=== PATIENT | female | born 1975 | race Hispanic/Latino ===

== ENCOUNTER 2017-07-05 00:47 | Observation (INO) | payer SELFPAY ==
--- NOTE | 2017-07-05 01:45 | ED PDOC ---
Arrival/HPI - General Chief Complaint: Medical Clearance Time Seen by Provider: 07/05/17 01:18 Historian: Patient, Partner EM Caveat: Uncooperative - History of Present Illness Narrative History of Present Illness (Text): 07/05/17 01:47 41 year old female, whose past medical history includes alcohol abuse and substance abuse, presents to the emergency department complaining of chest pain associated with shortness of breath after binge drinking and use of cocaine as well as K2 earlier today. Patient started swearing and stating she does not want to be examined. Patient's partner states shes been nauseous and vomiting. Patient refused to be examined and denies wanting any blood work or test done. Time/Duration: 4-6 hours Symptom Onset: Gradual Symptom Course: Unchanged Activities at Onset: Light Context: Home Past Medical History - Provider Review Nursing Documentation Reviewed: Yes - Psychiatric Hx Depression: Yes Hx Substance Use: Yes (k2/crack) - Surgical History Hx Orthopedic Surgery: Yes (left hand) Family/Social History - Physician Review Nursing Documentation Reviewed: Yes Family/Social History: No Known Family HX Smoking Status: Heavy Smoker > 10 Cigarettes Daily Hx Alcohol Use: Yes Hx Substance Use: Yes (k2/crack) Allergies/Home Meds Allergies/Adverse Reactions: Allergies No Known Allergies Allergy (Verified 07/05/17 01:27) Home Medications: Home Meds Medication Instructions Recorded Confirmed No Known Home Med 07/05/17 07/05/17 Review of Systems - Physician Review All systems were reviewed & negative as marked: Yes - Review of Systems Systems not reviewed;Unavailable: Uncooperative Respiratory: SOB Cardiovascular: Chest Pain Gastrointestinal: Nausea, Vomiting Physical Exam - Physical Exam Physical Exam Limitations: Uncooperative Vital Signs Reviewed: Yes Vital Signs Temp Pulse Resp BP Pulse Ox 07/05/17 06:53 84 16 103/72 96 07/05/17 04:10 96 H 18 104/62 99 07/05/17 02:22 84 20 119/81 97 07/05/17 01:42 20 07/05/17 01:28 98.3 F 88 96 H 133/84 Temperature: Afebrile Blood Pressure: Normal Pulse: Regular Respiratory Rate: Normal Appearance: Positive for: Well-Appearing, Non-Toxic Pain Distress: None Mental Status: Positive for: Alert and Oriented X 3 - Systems Exam Head: Present: Atraumatic, Normocephalic Pupils: Present: PERRL Extroacular Muscles: Present: EOMI Conjunctiva: Present: Normal Mouth: Present: Moist Mucous Membranes Respiratory/Chest: Present: Clear to Auscultation, Good Air Exchange. No: Respiratory Distress, Accessory Muscle Use Cardiovascular: Present: Regular Rate and Rhythm, Normal S1, S2. No: Murmurs Upper Extremity: Present: Normal Inspection, Normal ROM Lower Extremity: Present: Normal Inspection Neurological: Present: GCS=15, CN II-XII Intact, Speech Normal, Motor Func Grossly Intact, Normal Sensory Function Skin: Present: Warm, Dry, Normal Color. No: Rashes Psychiatric: Present: Alert, Oriented x 3, Intoxicated Medical Decision Making ED Course and Treatment: 07/05/17 01:47 Impression: 41 year old female presents complaining of chest pain associated with shortness of breath after binge drinking and use of cocaine and K2. Patient is being uncooperative and refuses examination. Plan: -- EKG -- Labs -- Chest X-ray -- Reassess and disposition Progress Notes: Patient is swearing and facing away from me. Patient refuses to be examined and is refusing any blood work or tests done. 07/05/17 01:59 Patient is currently cursing and yelling excessively. 07/05/17 02:14 EKG shows NSR at 84 BPM with normal intervals. Normal EKG. Interpreted by me. 07/05/17 06:50 Pt. now cooperative.Blood sent for analysis.Endorsed to oncoming ER attending /reassessment/final disposition - Lab Interpretations Lab Results: 07/05/17 06:50 Lab Results 07/05/17 06:50: WBC 5.7, RBC 3.85, Hgb 12.1, Hct 36.2, MCV 94.0, MCH 31.4, MCHC 33.4, RDW 14.9 H, Plt Count 276, MPV 9.1 - RAD Interpretation Radiology Orders: 07/05/17 01:44 CHEST PORTABLE [RAD] Stat - Scribe Statement The provider has reviewed the documentation as recorded by the Scribe Noemi Leon Provider Scribe Attestation: All medical record entries made by the Scribe were at my direction and personally dictated by me. I have reviewed the chart and agree that the record accurately reflects my personal performance of the history, physical exam, medical decision making, and the department course for this patient. I have also personally directed, reviewed, and agree with the discharge instructions and disposition. Disposition/Present on Arrival - Present on Arrival Any Indicators Present on Arrival: No History of DVT/PE: No History of Uncontrolled Diabetes: No Urinary Catheter: No History of Decub. Ulcer: No History Surgical Site Infection Following: None - Disposition Have Diagnosis and Disposition been Completed?: No Diagnosis: Chest pain, Cocaine abuse Disposition Time: 07:01 Patient Problems: Current Active Problems Problem Status Onset Chest pain Acute Cocaine abuse Acute Condition: STABLE Discharge Instructions (ExitCare): Chest Pain (ED) Forms: [employer] (Irish)
[2017-07-05 07:09] LABS: HEMATOCRIT 36.2 % (36.0-48.0); MEAN CORPUSCULAR HEMOGLOBIN 31.4 pg (25.0-35.0); MEAN CORPUSCULAR HGB CONC 33.4 g/dl (31.0-37.0); MEAN PLATELET VOLUME 9.1 fl (7.0-11.0); RED CELL DISTRIBUTION WIDTH 14.9 % (11.5-14.5); WHITE BLOOD COUNT 5.7 10^3/ul (4.5-11.0)
[2017-07-05 07:23] LABS: INR 0.98 (0.93-1.08); PARTIAL THROMBOPLASTIN TIME 23.8 Seconds (25.1-36.5)
--- NOTE | 2017-07-05 07:29 | ED PDOC ---
Physical Exam Vital Signs Reviewed: Yes Vital Signs Temp Pulse Resp BP Pulse Ox 07/05/17 06:53 84 16 103/72 96 07/05/17 04:10 96 H 18 104/62 99 07/05/17 02:22 84 20 119/81 97 07/05/17 01:42 20 07/05/17 01:28 98.3 F 88 96 H 133/84 Temperature: Afebrile Blood Pressure: Normal Pulse: Regular Respiratory Rate: Tachypneic Appearance: Positive for: Well-Appearing, Non-Toxic, Comfortable Pain Distress: None Mental Status: Positive for: Alert and Oriented X 3 Medical Decision Making ED Course and Treatment: 07/05/17 07:27: Patient endorsed to me by Dr. Santa. Follow up with labs. Pending Chest X-Ray. Will re-evaluate and disposition. 07/05/17 8:58. Labs reviewed. CXR negative. Troponin negative. Patient states she gets intermittent chest pain described as pressure/squeezing on her mid chest since she used cocaine/crack. Also had alcohol. Patient will be placed on observation and Dr. Astudillo is in the ED to evaluation patient for admission. - Lab Interpretations Lab Results: 07/05/17 06:50 Lab Results 07/05/17 06:50: PT 10.8, INR 0.98, APTT 23.8 L 07/05/17 06:50: WBC 5.7, RBC 3.85, Hgb 12.1, Hct 36.2, MCV 94.0, MCH 31.4, MCHC 33.4, RDW 14.9 H, Plt Count 276, MPV 9.1 - RAD Interpretation Radiology Orders: 07/05/17 01:44 CHEST PORTABLE [RAD] Stat - Scribe Statement The provider has reviewed the documentation as recorded by the Scribe Patsy Partida All medical record entries made by the Scribe were at my direction and personally dictated by me. I have reviewed the chart and agree that the record accurately reflects my personal performance of the history, physical exam, medical decision making, and the department course for this patient. I have also personally directed, reviewed, and agree with the discharge instructions and disposition. Disposition/Present on Arrival - Present on Arrival Any Indicators Present on Arrival: No History of DVT/PE: No History of Uncontrolled Diabetes: No Urinary Catheter: No History of Decub. Ulcer: No History Surgical Site Infection Following: None - Disposition Have Diagnosis and Disposition been Completed?: Yes Diagnosis: Chest pain, Cocaine abuse Disposition: HOSPITALIZED Disposition Time: 08:58 Patient Plan: Observation Patient Problems: Current Active Problems Problem Status Onset Chest pain Acute Cocaine abuse Acute Condition: FAIR
[2017-07-05 07:35] LABS: TROPONIN I < 0.01 ng/mL
[2017-07-05 07:37] LABS: ALB/GLOB RATIO 1.1 (1.1-1.8); ALKALINE PHOSPHATASE 82 U/L (38-126); ALT/SGPT 30 U/L (7-56); AST/SGOT 43 U/L (14-36); BILIRUBIN,TOTAL 0.3 mg/dL (0.2-1.3); BLOOD UREA NITROGEN 13 mg/dL (7-21); CALCIUM 8.4 mg/dL (8.4-10.5); CARBON DIOXIDE 24 mmol/L (21-33); CHLORIDE 107 mmol/L (98-107); GFR AFRICAN-AMERICAN > 60; GLUCOSE,RANDOM 81 mg/dL (70-110); POTASSIUM 3.6 mmol/L (3.6-5.0); SODIUM 141 mmol/L (132-148); TOTAL PROTEIN 7.5 g/dL (5.8-8.3)
[2017-07-05 09:44] VITALS: O2SAT 95
[2017-07-05] MEDS ORDERED: Folic Acid 1 MG, Thiamine 100 MG, Multivitamin (MVI) 10 ML in Dextrose 5% In Water 1,00... IV SCH (12:00)
[2017-07-05 13:09] VITALS: PULSE 90; RESP 20; BMI 25.6
--- NOTE | 2017-07-05 13:10 | RAD ---
HISTORY: chest pain COMPARISON: No prior. FINDINGS: LUNGS: No active pulmonary disease. PLEURA: No significant pleural effusion identified, no pneumothorax apparent. CARDIOVASCULAR: Normal. OSSEOUS STRUCTURES: No significant abnormalities. VISUALIZED UPPER ABDOMEN: Normal. OTHER FINDINGS: None. IMPRESSION: No active disease.
--- NOTE | 2017-07-05 13:18 | CP.PCM.HP ---
<Vanda Astudillo - Last Filed: 07/05/17 15:29> History of Present Illness - History of Present Illness History of Present Illness: PGY-2 H&P [address] [facility] service 41 year old female with past medical history of alcohol abuse and substance abuse, presents to the emergency department complaining of chest pain associated with shortness of breath after binge drinking and use of cocaine as well as K2 yesterday evening. Patient states that she lives in [place] but came to for a family get together. At the event she states that she smoked cocaine and K2. She does not know the amount of product inhaled. Per friend at bedside patient became agitated and aggressive. When she calmed down she complained of chest pain located in the center of her chest, non-radiating. She states it felt like a sharp punch, lasting only a few seconds but was intermittent. She also reported dyspnea and numbness of left arm. While in the ED she states she vomiting multiple time and was stilly dizzy. Per ED note patient was very aggressive and initially refusing to be examined. This morning patient was calm and cooperative with exam and history. She states that the numbness in her arm has resolved. Patient states that she does not see a doctor regularly. PMH: unknown PSH: hand surgery social history: drinks 2 pints vodka daily, smoked about 1ppd, cocaine and K2 use family: mother pancreatic ca, father diabetes, brother HTN home meds: None allergy: NKDA Present on Admission - Present on Admission Any Indicators Present on Admission: No Review of Systems - Constitutional Constitutional: absent: Fatigue, Fever, Headache, Night Sweats - EENT Eyes: absent: Blurred Vision Nose/Mouth/Throat: absent: Nasal Discharge, Nasal Obstruction, Dysphagia, Sore Throat - Cardiovascular Cardiovascular: Chest Pain, Diaphoresis, Dyspnea, Lightheadedness. absent: Irregular Heart Rhythm, Palpitations - Respiratory Respiratory: Cough (chronic), Dyspnea. absent: Hemoptysis - Gastrointestinal Gastrointestinal: Nausea, Vomiting. absent: Abdominal Pain, Constipation, Diarrhea, Dysphagia - Genitourinary Genitourinary: absent: Change in Urinary Stream, Difficulty Urinating, Dysuria - Musculoskeletal Musculoskeletal: Numbness. absent: Back Pain, Muscle Weakness - Integumentary Integumentary: absent: Pruritus, Rash, Skin Pain, Skin Ulcer - Neurological Neurological: Numbness. absent: Dizziness, Headaches, Syncope, Tremor, Weakness Past Patient History - Past Social History Smoking Status: Heavy Smoker > 10 Cigarettes Daily - MUSCULOSKELETAL/RHEUMATOLOGICAL Hx Falls: No - PSYCHIATRIC Hx Anxiety: Yes Hx Substance Use: Yes - SURGICAL HISTORY Hx Surgeries: Yes Other/Comment: Left hand orthopedic surgery Meds Allergies/Adverse Reactions: Allergies Allergy/AdvReac Type Severity Reaction Status Date / Time No Known Allergies Allergy Verified 07/05/17 01:27 Physical Exam - Constitutional Appears: No Acute Distress, Agitated - Head Exam Head Exam: ATRAUMATIC, NORMAL INSPECTION, NORMOCEPHALIC - Eye Exam Eye Exam: EOMI, Normal appearance - ENT Exam ENT Exam: Mucous Membranes Moist - Respiratory Exam Respiratory Exam: Clear to Auscultation Bilateral, Prolonged Expiratory Phase. absent: Wheezes, Respiratory Distress, NORMAL BREATHING PATTERN - Cardiovascular Exam Cardiovascular Exam: REGULAR RHYTHM, +S1, +S2. absent: Tachycardia, Diastolic murmur, Systolic Murmur - GI/Abdominal Exam GI & Abdominal Exam: Normal Bowel Sounds, Soft. absent: Distended, Firm, Guarding, Hypoactive Bowel Sounds - Extremities Exam Extremities exam: Positive for: normal inspection. Negative for: pedal edema, tenderness - Neurological Exam Neurological exam: Alert, CN II-XII Intact, Oriented x3 - Skin Skin Exam: Dry, Intact, Normal Color, Warm Results - Vital Signs Recent Vital Signs: Last Vital Signs Temp 98.2 F 07/05/17 12:28 Pulse 90 07/05/17 12:28 Resp 20 07/05/17 12:28 BP 127/85 07/05/17 12:28 Pulse Ox 95 07/05/17 09:43 - Labs Result Diagrams: 07/05/17 06:50 07/05/17 06:50 Labs: Laboratory Results - last 24 hr 07/05/17 09:30 Urine Opiates Screen Negative Urine Methadone Screen Negative Ur Barbiturates Screen Negative Ur Phencyclidine Scrn Negative Ur Amphetamines Screen Negative U Benzodiazepines Scrn Negative U Oth Cocaine Metabols Negative U Cannabinoids Screen Positive H Assessment & Plan - Assessment and Plan (Free Text) Assessment: 41 year old female with past medical history of alcohol abuse and substance abuse, presents to the emergency department complaining of chest pain associated with shortness of breath after binge drinking and use of cocaine as well as K2. Plan: 1. chest pain - most likely due to drug use - patient will be monitored on tele - EKG nsr, - troponins negative times 1 - trend trops - urine drug screen negative for cocaine positive for cannabinoids - alcohol level elevated - lipid panel - will hold off on echo for now - asa 81 mg - cardiology consult, Dr. Prabhakar 2. alcohol intoxication - currently not withdrawing - [facility] protocol - ativan 1mg q6 prn - banana bag - will confider librium for withdrawal 3. h/o of smoking - patient offered nictotine patch, refused ppx - lovenox for dvt ppx - protonix for GI ppx <Jenaro Vee - Last Filed: 07/06/17 12:06> Results - Vital Signs Recent Vital Signs: Last Vital Signs Temp 97.2 F L 07/05/17 16:30 Pulse 90 07/05/17 16:30 Resp 20 07/05/17 16:30 BP 126/72 07/05/17 16:30 Pulse Ox 95 07/05/17 16:30 - Labs Result Diagrams: 07/05/17 06:50 07/05/17 06:50 Labs: Laboratory Results - last 24 hr 07/05/17 07/05/17 13:30 19:35 Lactate Dehydrogenase 499 Total Creatine Kinase 238 H CK-MB (CK-2) 2.8 CK-MB (CK-2) % Cancelled Troponin I < 0.01 < 0.01 Attending/Attestation - Attestation I have personally seen and examined this patient.: Yes I have fully participated in the care of the patient.: Yes I have reviewed all pertinent clinical information: Yes Notes (Text): 07/06/17 12:05 Patient was seen and examined with durable medical equipment repairer. Agreed with resident assessment and plan. 41 year old female with past medical history of alcohol abuse and drug abuse is admitted with atypical chest pain.EKG is negative for ischemic changes. We will get serial troponins and will monitor patient in telemetry. We will also check lipid profile Management plan was discussed in detail with patient and who is at bed side. Education was provided. 07/06/17 12:06
--- NOTE | 2017-07-05 15:01 | CON ---
DATE: 07/05/2017 CARDIOLOGY CONSULTATION HISTORY OF PRESENT ILLNESS: The patient is a 41-year-old woman who presents with atypical fleeting chest discomfort described as going from the right side for a few seconds, going to the left side for a few seconds. PAST MEDICAL HISTORY: Notable for cocaine abuse, alcohol abuse,. No diabetes mellitus. No hypertension. No previous cardiac history. SOCIAL HISTORY: The patient is an active smoker. REVIEW OF SYSTEMS: 14-point review of systems was reviewed in detail. The patient claims to be depressed and intake of alcohol as well as drugs help her with her depression. PHYSICAL EXAMINATION: VITAL SIGNS: Blood pressure 134/85, heart rate in the 80s. NECK: Negative JVD. LUNGS: Without rales. HEART: S1, S2. EXTREMITIES: Without edema. LABORATORY DATA: Troponins are negative x1. The hemoglobin is 12.1. EKG is within normal limits. IMPRESSION: 1. Atypical chest pain. 2. Probable palpitations. 3. Cocaine and alcohol abuse. 4. History of depression. 5. Active smoker. PLAN: Given these findings, there is no evidence for acute coronary syndrome. I have discussed with the patient that it is likely much of her symptoms is related to her drug abuse. I have discussed with her about the need to seek help for drug abstinence. Celestino Prabhakar MD
[2017-07-05 16:42] VITALS: BP 126/72; TEMP 97.2
--- NOTE | 2017-07-05 17:09 | CARD ---
APPROVED REPORT EKG Measurement Heart [id number] ND 130P-21 [id number] <Conclusion> Normal sinus rhythm Normal ECG
[2017-07-05 20:21] LABS: TROPONIN I < 0.01 ng/mL
[2017-07-06] MEDS ORDERED: Pantoprazole 40 mg EC Tab PO SCH (10:00)
[2017-07-06] MEDS ORDERED: Enoxaparin 40 mg Syringe SC SCH (10:00)
--- NOTE | 2017-07-06 13:03 | CP.PCM.DIS ---
<Vanda Astudillo - Last Filed: 07/07/17 08:57> Provider - Provider Date of Admission: 07/05/17 07:16 Attending physician: Otilia Gonzales MD Primary care physician: NO PRIMARY CARE PROVIDER Time Spent in preparation of Discharge (in minutes): 35 Hospital Course - Lab Results Lab Results: Most Recent Lab Values WBC 5.7 10^3/ul (4.5-11.0) 07/05/17 06:50 RBC 3.85 10^6/uL (3.5-6.1) 07/05/17 06:50 Hgb 12.1 g/dL (12.0-16.0) 07/05/17 06:50 Hct 36.2 % (36.0-48.0) 07/05/17 06:50 MCV 94.0 fl (80.0-105.0) 07/05/17 06:50 MCH 31.4 pg (25.0-35.0) 07/05/17 06:50 MCHC 33.4 g/dl (31.0-37.0) 07/05/17 06:50 RDW 14.9 % (11.5-14.5) H 07/05/17 06:50 Plt Count 276 10^3/uL (120.0-450.0) 07/05/17 06:50 MPV 9.1 fl (7.0-11.0) 07/05/17 06:50 PT 10.8 SECONDS (9.4-12.5) 07/05/17 06:50 INR 0.98 (0.93-1.08) 07/05/17 06:50 APTT 23.8 Seconds (25.1-36.5) L 07/05/17 06:50 Sodium 141 mmol/L (132-148) 07/05/17 06:50 Potassium 3.6 mmol/L (3.6-5.0) 07/05/17 06:50 Chloride 107 mmol/L (98-107) 07/05/17 06:50 Carbon Dioxide 24 mmol/L (21-33) 07/05/17 06:50 Anion Gap 14 (10-20) 07/05/17 06:50 BUN 13 mg/dL (7-21) 07/05/17 06:50 Creatinine 0.6 mg/dl (0.7-1.2) L 07/05/17 06:50 Est GFR ( Amer) > 60 07/05/17 06:50 Est GFR (Non-Af Amer) > 60 07/05/17 06:50 Random Glucose 81 mg/dL (70-110) 07/05/17 06:50 Calcium 8.4 mg/dL (8.4-10.5) 07/05/17 06:50 Total Bilirubin 0.3 mg/dL (0.2-1.3) 07/05/17 06:50 AST 43 U/L (14-36) H 07/05/17 06:50 ALT 30 U/L (7-56) 07/05/17 06:50 Alkaline Phosphatase 82 U/L (38-126) 07/05/17 06:50 Lactate Dehydrogenase 499 U/L (333-699) 07/05/17 19:35 Total Creatine Kinase 238 U/L (35-230) H 07/05/17 19:35 CK-MB (CK-2) 2.8 ng/mL (0.0-3.6) 07/05/17 19:35 CK-MB (CK-2) % Cancelled 07/05/17 06:50 Troponin I < 0.01 ng/mL 07/05/17 19:35 Total Protein 7.5 g/dL (5.8-8.3) 07/05/17 06:50 Albumin 3.9 g/dL (3.0-4.8) 07/05/17 06:50 Globulin 3.6 gm/dL 07/05/17 06:50 Albumin/Globulin Ratio 1.1 (1.1-1.8) 07/05/17 06:50 Beta HCG, Quant < 2.39 mIU/mL (0-6.15) 07/05/17 06:50 Urine Opiates Screen Negative (NEGATIVE) 07/05/17 09:30 Urine Methadone Screen Negative (NEGATIVE) 07/05/17 09:30 Ur Barbiturates Screen Negative (NEGATIVE) 07/05/17 09:30 Ur Phencyclidine Scrn Negative (NEGATIVE) 07/05/17 09:30 Ur Amphetamines Screen Negative (NEGATIVE) 07/05/17 09:30 U Benzodiazepines Scrn Negative (NEGATIVE) 07/05/17 09:30 U Oth Cocaine Metabols Negative (NEGATIVE) 07/05/17 09:30 U Cannabinoids Screen Positive (NEGATIVE) H 07/05/17 09:30 Alcohol, Quantitative 153 mg/dL (0-10) H 07/05/17 06:50 - Hospital Course Hospital Course: 41 yo female with PMH of alcohol and substance abuse present to ED with chest pain after smoking cocaine and K2 the night before. Patient states that she was not certain of what she was smoking but was told it was cocaine and K2. urine drug screen was positive for cannabinoid negative for cocaine. Patient was admitted for cardiac monitoring and cardiology was consulted. Troponins were trended. Overnight patient signed out AMA. Discharge Plan - Follow Up Plan Condition: FAIR Disposition: AGAINST MEDICAL ADVICE Referrals: PCP,NO [Primary Care Provider] - <Jenaro Vee - Last Filed: 07/07/17 09:14> Provider - Provider Date of Admission: 07/05/17 07:16 Attending physician: Otilia Gonzales MD Primary care physician: NO PRIMARY CARE PROVIDER Hospital Course - Lab Results Lab Results: Most Recent Lab Values WBC 5.7 10^3/ul (4.5-11.0) 07/05/17 06:50 RBC 3.85 10^6/uL (3.5-6.1) 07/05/17 06:50 Hgb 12.1 g/dL (12.0-16.0) 07/05/17 06:50 Hct 36.2 % (36.0-48.0) 07/05/17 06:50 MCV 94.0 fl (80.0-105.0) 07/05/17 06:50 MCH 31.4 pg (25.0-35.0) 07/05/17 06:50 MCHC 33.4 g/dl (31.0-37.0) 07/05/17 06:50 RDW 14.9 % (11.5-14.5) H 07/05/17 06:50 Plt Count 276 10^3/uL (120.0-450.0) 07/05/17 06:50 MPV 9.1 fl (7.0-11.0) 07/05/17 06:50 PT 10.8 SECONDS (9.4-12.5) 07/05/17 06:50 INR 0.98 (0.93-1.08) 07/05/17 06:50 APTT 23.8 Seconds (25.1-36.5) L 07/05/17 06:50 Sodium 141 mmol/L (132-148) 07/05/17 06:50 Potassium 3.6 mmol/L (3.6-5.0) 07/05/17 06:50 Chloride 107 mmol/L (98-107) 07/05/17 06:50 Carbon Dioxide 24 mmol/L (21-33) 07/05/17 06:50 Anion Gap 14 (10-20) 07/05/17 06:50 BUN 13 mg/dL (7-21) 07/05/17 06:50 Creatinine 0.6 mg/dl (0.7-1.2) L 07/05/17 06:50 Est GFR ( Amer) > 60 07/05/17 06:50 Est GFR (Non-Af Amer) > 60 07/05/17 06:50 Random Glucose 81 mg/dL (70-110) 07/05/17 06:50 Calcium 8.4 mg/dL (8.4-10.5) 07/05/17 06:50 Total Bilirubin 0.3 mg/dL (0.2-1.3) 07/05/17 06:50 AST 43 U/L (14-36) H 07/05/17 06:50 ALT 30 U/L (7-56) 07/05/17 06:50 Alkaline Phosphatase 82 U/L (38-126) 07/05/17 06:50 Lactate Dehydrogenase 499 U/L (333-699) 07/05/17 19:35 Total Creatine Kinase 238 U/L (35-230) H 07/05/17 19:35 CK-MB (CK-2) 2.8 ng/mL (0.0-3.6) 07/05/17 19:35 CK-MB (CK-2) % Cancelled 07/05/17 06:50 Troponin I < 0.01 ng/mL 07/05/17 19:35 Total Protein 7.5 g/dL (5.8-8.3) 07/05/17 06:50 Albumin 3.9 g/dL (3.0-4.8) 07/05/17 06:50 Globulin 3.6 gm/dL 07/05/17 06:50 Albumin/Globulin Ratio 1.1 (1.1-1.8) 07/05/17 06:50 Beta HCG, Quant < 2.39 mIU/mL (0-6.15) 07/05/17 06:50 Urine Opiates Screen Negative (NEGATIVE) 07/05/17 09:30 Urine Methadone Screen Negative (NEGATIVE) 07/05/17 09:30 Ur Barbiturates Screen Negative (NEGATIVE) 07/05/17 09:30 Ur Phencyclidine Scrn Negative (NEGATIVE) 07/05/17 09:30 Ur Amphetamines Screen Negative (NEGATIVE) 07/05/17 09:30 U Benzodiazepines Scrn Negative (NEGATIVE) 07/05/17 09:30 U Oth Cocaine Metabols Negative (NEGATIVE) 07/05/17 09:30 U Cannabinoids Screen Positive (NEGATIVE) H 07/05/17 09:30 Alcohol, Quantitative 153 mg/dL (0-10) H 07/05/17 06:50 Attending/Attestation - Attestation I have personally seen and examined this patient.: Yes I have fully participated in the care of the patient.: Yes I have reviewed all pertinent clinical information, including history, physical exam and plan: Yes
== END 2017-07-05 23:10 | disposition left against medical advice (07) ==
LOC: ED 00:47 → ERH 07:16 → 3RNO 10:04
PROVIDERS: ADMIT Hospitalist; ATTEND Hospitalist
DX: R07.89 Other chest pain (principal); R00.2 Palpitations; F14.10 Cocaine abuse, uncomplicated; F10.129 Alcohol abuse with intoxication, unspecified; Y90.6 Blood alcohol level of 120-199 mg/100 ml; F17.200 Nicotine dependence, unspecified, uncomplicated; Z80.0 Family history of malignant neoplasm of digestive organs; Z82.49 Family history of ischemic heart disease and other diseases of the circulatory system; Z83.3 Family history of diabetes mellitus; R40.2412 Glasgow coma scale score 13-15, at arrival to emergency department
CPT/HCPCS: 71010; 80053; 82550; 82553; 83615; 84484; 84702; 85027; 85610; 85730; 93005; 99285; G0378; G0480; J2060; J3411; J7070